=== PATIENT | female | born 2000 | race Caucasian/White ===

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

== ENCOUNTER 2021-09-08 16:57 | Emergency (ER) | payer OTHER ==
[~2021-09-08] VITALS: Ht 167.6 cm; Wt 81.6 kg
[2021-09-08] MEDS ORDERED: IV NORMAL SALINE 500 ML BAG IV ONE (17:15)
[2021-09-08] MEDS ORDERED: MORPHINE SULFATE 4 MG/1 ML DISP.SYRIN IV ONE (17:15)
[2021-09-08] MEDS ORDERED: IV NORMAL SALINE 250 ML IV ONE (17:24)
[2021-09-08] MEDS ORDERED: MORPHINE SULFATE 4 MG/1 ML DISP.SYRIN ONE (17:24)
[2021-09-08] MEDS ORDERED: SWABABLE VALVE TRANSFER SET EA MC ONE (17:24)
[2021-09-08] MEDS ORDERED: IOHEXOL 300MG/ML 100 ML INFUS..BTL ONE (17:24)
--- NOTE | 2021-09-08 17:24 | NUR ---
Patient only wanted CT scan without contrast injection. Patient refused CT with IV contrast media injection, notified.
[2021-09-08 17:25] LABS: HEMATOCRIT 38.3 % (31.2-41.9); MEAN CORPUSCULAR VOLUME 75.9 fL (75.5-95.3); PLATELET COUNT (AUTO) 304 K/uL (179-408)
[2021-09-08 17:29] LABS: CREATININE 0.9 mg/dL (0.6-1.3); POTASSIUM 3.8 mmol/L (3.5-5.1)
[2021-09-08 17:30] LABS: *BILIRUBIN,URIN NEGATIVE (NEGATIVE); *BLOOD, URINE 1+ (NEGATIVE); *CLARITY,URINE CLEAR (CLEAR); *COLOR,URINE YELLOW (YELLOW); *KETONES,URINE NEGATIVE (NEGATIVE); *UROBILINOGEN,URINE 0.2 E.U./dl (NORMAL); LEUKOCYTE ESTERASE ,URINE NEGATIVE (NEGATIVE); NITRITE, URINE NEGATIVE (NEGATIVE); PH,URINE 5.5 (5.0-8.0); UGLUCOSE NEGATIVE (NEGATIVE)
[2021-09-08 17:32] LABS: *URINE HCG, QUAL NEG (NEGATIVE)
[2021-09-08 17:35] LABS: BILIRUBIN,TOTAL 0.2 mg/dL (0.2-1.0); TOTAL PROTEIN, SERUM 8.4 g/dL (6.4-8.2)
[2021-09-08 17:42] LABS: *AMPHETAMINE, URINE NEGATIVE (NEGATIVE); *CANNABINOID, URINE NEGATIVE (NEGATIVE); *COCCAINE, URINE NEGATIVE (NEGATIVE); *OPIATE, URINE NEGATIVE (NEGATIVE); *PHENCYCLIDINE SCREEN,URINE NEGATIVE (NEGATIVE)
--- NOTE | 2021-09-08 17:57 | NUR ---
"OK to have water." per MD, pending results and disposition.
[2021-09-08 18:21] LABS: THYROID STIMULATING HORMONE 0.032 mIU/mL (0.358-3.740)
--- NOTE | 2021-09-08 18:49 | NUR ---
Patient is resting comfortably on gurney with [email or web address].
--- NOTE | 2021-09-08 18:59 | NUR ---
Pending CT scan results, nursing SBAR given to CHEKO Sidhu.
--- NOTE | 2021-09-08 19:04 | NUR ---
RECEIVED REPORT FROM CHEKO KAM. PT NOTED TO BE IN BED A/O X4, NO SOB OR LABORED BREATHING, AFEBRILE. MOTHER AT BEDSIDE.
--- NOTE | 2021-09-08 19:19 | NUR ---
Patient discharged to home in stable condition. Written and verbal after care instructions given. Patient verbalizes understanding of instructions. Stressed follow up or return to ER for worsening s/s. Steady gait, denies any pain/discomfort upion discharge. Accompanied by mother.
[2021-09-08 19:20] VITALS: BP 126/78
[2021-09-08 20:48] LABS: BACTERIA,URINE FEW /HPF (NONE SEEN); SQUAMOUS EPITHELIAL CELL,UR FEW /HPF (NONE SEEN); URINE AMORPHOUS URATE MANY /HPF; WBC,URINE 0-3 /HPF (0-3)
== END 2021-09-08 19:20 | disposition home or self-care (01) ==
LOC: ER 17:07
DX: R10.84 Generalized abdominal pain (principal)
CPT/HCPCS: 36415; 74176; 80053; 80307; 81001; 83690; 84443; 84703; 85025; 99284; J2270; Q9967; A4663; J7030; J7050

== ENCOUNTER 2021-09-29 22:09 | Emergency (ER) | payer OTHER ==
[~2021-09-29] VITALS: Ht 167.6 cm; Wt 81.6 kg
--- NOTE | 2021-09-29 22:18 | NUR ---
PT AMBULATED TO ER WITH STEADY GAIT, C/O ABD PAIN X10 DAYS. DENIES ANY N/V/D. NO SOB OR LABORED BREATHING, AFEBRILE. MOTHER AT BEDSIDE.
[2021-09-29] MEDS ORDERED: IV NORMAL SALINE 1000 ML BAG IV ONE (22:30)
[2021-09-29 22:52] LABS: *BILIRUBIN,URIN NEGATIVE (NEGATIVE); *CLARITY,URINE CLEAR (CLEAR); *COLOR,URINE YELLOW (YELLOW); *KETONES,URINE TRACE (NEGATIVE); *UROBILINOGEN,URINE 0.2 E.U./dl (NORMAL); LEUKOCYTE ESTERASE ,URINE NEGATIVE (NEGATIVE); NITRITE, URINE NEGATIVE (NEGATIVE); PH,URINE 5.5 (5.0-8.0); UGLUCOSE NEGATIVE (NEGATIVE)
[2021-09-29 22:53] LABS: *BLOOD, URINE TRACE (NEGATIVE)
[2021-09-29 22:56] LABS: CARBON DIOXIDE 27 mmol/L (21-32); CHLORIDE 104 mmol/L (98-107); CREATININE 0.8 mg/dL (0.6-1.3); GLUCOSE 86 mg/dL (74-106); POTASSIUM 4.5 mmol/L (3.5-5.1); UREA NITROGEN, BLOOD 16 mg/dL (7-18)
[2021-09-29 23:01] LABS: HEMATOCRIT 35.7 % (31.2-41.9); MEAN CORPUSCULAR HEMOGLOBIN 25.2 uug (24.7-32.8); MEAN CORPUSCULAR VOLUME 76.4 fL (75.5-95.3); PLATELET COUNT (AUTO) 332 K/uL (179-408)
[2021-09-29 23:02] LABS: ALANINE AMINOTRANSFERASE 25 U/L (14-59); ALKALINE PHOSPHATASE 54 U/L (50-136); ASPARTATE AMINOTRANSFERASE 20 U/L (15-37); BILIRUBIN,DIRECT < 0.1 mg/dL (0.0-0.2); BILIRUBIN,TOTAL 0.2 mg/dL (0.2-1.0); LIPASE 96 U/L (73-393); TOTAL PROTEIN, SERUM 7.4 g/dL (6.4-8.2)
[2021-09-29] MEDS ORDERED: HYDROMORPHONE 1 MG/1 ML DISP.SYRIN IM ONE (23:15)
[2021-09-29] MEDS ORDERED: ONDANSETRON 4 MG/2 ML VIAL IM ONE (23:15)
--- NOTE | 2021-09-29 23:15 | NUR ---
PT HAS REFUSED IV ACCESS DESPITE EDUCATING ABOUT RISK AND BENEFITS BY RN AND DR. CARLOS, PATIENT HAS VERBALIZED UNDERSTANDING.
[2021-09-29] MEDS ORDERED: ONDANSETRON 4 MG/2 ML VIAL ONE (23:27)
[2021-09-29] MEDS ORDERED: HYDROMORPHONE 1 MG/1 ML DISP.SYRIN ONE (23:27)
--- NOTE | 2021-09-29 23:40 | NUR ---
US (BED) AT BEDSIDE. PT'S MOTHER AT BEDSIDE.
[2021-09-30 01:06] LABS: BACTERIA,URINE FEW /HPF (NONE SEEN); SQUAMOUS EPITHELIAL CELL,UR MODERATE /HPF (NONE SEEN)
[2021-09-30] MEDS ORDERED: HYDR-4209 PO (01:23)
[2021-09-30] MEDS ORDERED: FAMO-132 PO (01:23)
--- NOTE | 2021-09-30 01:30 | NUR ---
Patient discharged to home in stable condition. Written and verbal after care instructions given. Patient verbalizes understanding of instructions. Stressed follow up or return to ER for worsening s/s. Steady gait, no SOB or labored breathing, No changes in LOC. Denies any pain/discomfort upon discharge. Accompanied by mother.
[2021-09-30 01:40] VITALS: BP 114/70
== END 2021-09-30 01:32 | disposition home or self-care (01) ==
LOC: ER 22:11
DX: R10.9 Unspecified abdominal pain (principal); E03.9 Hypothyroidism, unspecified; R82.81 Pyuria; J45.909 Unspecified asthma, uncomplicated; N89.8 Other specified noninflammatory disorders of vagina
CPT/HCPCS: 36415; 76705; 76856; 80048; 80076; 81001; 83690; 84702; 85025; 96372 ×2; 99285; J1170; J2405; A4663; J7030

== ENCOUNTER 2023-03-02 19:54 | Emergency (ER) | payer OTHER ==
[~2023-03-02] VITALS: Ht 167.6 cm; Wt 79.4 kg
[~2023-03-02 19:54] MED LIST: FAMO-132 PO; HYDR-4209 PO
[2023-03-02] MEDS ORDERED: NAPR-1009 PO (21:19)
[2023-03-02 21:38] VITALS: BP 121/67; TEMP 98.2; O2SAT 99
== END 2023-03-02 21:30 | disposition home or self-care (01) ==
LOC: ER 19:55
DX: S93.401A Sprain of unspecified ligament of right ankle, initial encounter (principal); S80.01XA Contusion of right knee, initial encounter; E03.9 Hypothyroidism, unspecified; Z79.899 Other long term (current) drug therapy; X58.XXXA Exposure to other specified factors, initial encounter; Y93.89 Activity, other specified; Y92.89 Other specified places as the place of occurrence of the external cause; Y99.8 Other external cause status
CPT/HCPCS: A4663

== ENCOUNTER 2025-03-09 16:09 | Emergency (ER) | payer OTHER ==
[~2025-03-09] VITALS: Ht 170.2 cm; Wt 80.3 kg
[~2025-03-09 16:09] MED LIST changes: +NAPR-1009 PO
[2025-03-09 16:42] VITALS: BP 114/67
[2025-03-09] MEDS: IV NORMAL SALINE 1000 ML BAG IV ONE (17:44)
[2025-03-09] MEDS ORDERED: CEFTRIAXONE /D5W 50ML IVPB **ER PYXIS IV ONE (17:50)
[2025-03-09] MEDS ORDERED: DEXAMETHASONE SOD PHOSPHATE 4 MG INJ ONE (17:50)
[2025-03-09 17:55] LABS: CREATININE 0.9 mg/dL (0.6-1.3); PLATELET COUNT (AUTO) 228 K/uL (179-408); RED BLOOD CELL COUNT(AUTO) 4.53 MIL/uL (3.63-4.92); RED CELL DISTRIBUTION WIDTH 13.0 % (12.3-17.7); SODIUM SERUM 137.0 mmol/L (136-145); UREA NITROGEN, BLOOD 7.0 mg/dL (7-18); WHITE BLOOD COUNT (AUTO) 17.1 K/uL (3.8-11.8)
[2025-03-09] MEDS: DEXAMETHASONE SOD PHOSPHATE 4 MG INJ IV ONE (17:56)
[2025-03-09 18:01] LABS: ASPARTATE AMINOTRANSFERASE 11.0 U/L (15-37); TOTAL PROTEIN, SERUM 7.1 g/dL (6.4-8.2)
[2025-03-09] MEDS ORDERED: AMOX-430 PO (18:03)
[2025-03-09] MEDS ORDERED: ACETAMINOPHEN 500 MG TABLET ONE (18:14)
[2025-03-09] MEDS: ACETAMINOPHEN 500 MG TABLET PO ONE (18:15)
[2025-03-09 19:06] VITALS: BP 109/63; TEMP 98.6; O2SAT 99
== END 2025-03-09 19:08 | disposition home or self-care (01) ==
LOC: ER 16:18
DX: T67.5XXA Heat exhaustion, unspecified, initial encounter (principal); J02.9 Acute pharyngitis, unspecified; R51.9 Headache, unspecified; R53.1 Weakness; E03.9 Hypothyroidism, unspecified; Z20.822 Contact with and (suspected) exposure to COVID-19; X30.XXXA Exposure to excessive natural heat, initial encounter; Y93.89 Activity, other specified; Y92.89 Other specified places as the place of occurrence of the external cause; Y99.8 Other external cause status
CPT/HCPCS: 99284; 96365; 96375; 87426; 87804 ×2; 80076; 80048; 82550; 85025; 36415; J0696 ×2; J1100; J7040; A4606; A4663; A9150